=== PATIENT | male | born 1985 | race Caucasian/White ===

== ENCOUNTER 2016-10-09 06:23 | Day surgery (SDC) | payer MEDICAID ==
[~2016-10-09] VITALS: Ht 172.7 cm; Wt 102.1 kg
[2016-10-09] MEDS ORDERED: LACTATED RINGERS 1,000 ML IV SCH (07:45)
[2016-10-09] MEDS ORDERED: HYDR-519 PO (07:48)
[2016-10-09] MEDS ORDERED: IBUP-1636 PO (07:48)
[2016-10-09] MEDS ORDERED: MIDAZOLAM HCL 5 MG/5 ML VIAL ONE (09:15)
[2016-10-09] MEDS ORDERED: IOPAMIDOL 20 ML VIAL IT ONE (09:18)
[2016-10-09] MEDS ORDERED: CEFAZOLIN SODIUM 1000MG/VIAL ONE ×2 (09:29→09:43)
[2016-10-09] MEDS ORDERED: SODIUM CHLORIDE 0.9% 10ML VIAL ONE ×2 (09:29→09:43)
[2016-10-09] MEDS ORDERED: PROPOFOL 200MG/20ML VIAL IV ONE ×2 (09:29→09:43)
[2016-10-09] MEDS ORDERED: LIDOCAINE HCL 1% 20ML VIAL (Pyxis) INJ ONE ×2 (09:29→09:43)
[2016-10-09] MEDS ORDERED: ROCURONIUM BROMIDE 10MG/ML VIAL 5ML IV ONE (09:43)
[2016-10-09] MEDS ORDERED: GLYCOPYRROLATE 0.2 MG/ML 2ML VIAL ONE (09:43)
[2016-10-09] MEDS ORDERED: NEOSTIGMINE METHYLSULFATE 1MG/ML 10 ML VIAL ONE (09:44)
[2016-10-09] MEDS ORDERED: ONDANSETRON HCL 4MG/2ML VIAL ONE (09:46)
[2016-10-09] MEDS ORDERED: FLUMAZENIL 0.1 MG/ML 5ML VIAL IV ONE (10:04)
[2016-10-09] MEDS: FENTANYL CITRATE/PF 50MCG/ML 2ML VIAL IV PRN ×2 (11:03→11:15)
[2016-10-09 11:15] VITALS: BP 136/84
== END 2016-10-09 11:40 | disposition home or self-care (01) ==
LOC: OR 06:23
PROVIDERS: ATTEND Urology
DX: N20.1 Calculus of ureter (principal)
CPT/HCPCS: 52353; 74430; 82360; 88300; A4216; J0690; J2250; J2405; J2710; J3010; J3490; J7120; Q9966; J2704